=== PATIENT | male | born 2000 | race Two or more races ===

== ENCOUNTER 2022-09-13 15:28 | Emergency (ER) | payer SELFPAY ==
[~2022-09-13] VITALS: Ht 172.7 cm; Wt 87.9 kg
[2022-09-13 15:29] VITALS: BP 128/76
== END 2022-09-13 23:12 | disposition left against medical advice (07) ==
LOC: M ED 15:28
DX: Z53.21 Procedure and treatment not carried out due to patient leaving prior to being seen by health care provider (principal)

== ENCOUNTER 2023-04-20 10:49 | Inpatient (IN) | payer OTHER, SELFPAY ==
[~2023-04-20] VITALS: Ht 175.3 cm; Wt 83.4 kg
[2023-04-20 11:53] LABS: HEMOGLOBIN 15.7 g/dl (13.5-17.5); MEAN CORPUSCULAR HGB CONC 36.5 g/dl (32.0-36.5); PLATELET COUNT, AUTOMATED 225 10^3/uL (150-450); RED BLOOD COUNT 5.06 10^6/uL (4.30-6.10); WHITE BLOOD COUNT 6.5 10^3/uL (4.0-10.0)
[2023-04-20 12:10] LABS: AMPHETAMINES LEVEL URINE NEGATIVE (NEGATIVE); BARBITURATES URINE NEGATIVE (NEGATIVE); BENZODIAZEPINES URINE NEGATIVE (NEGATIVE); CANNABINOIDS URINE NEGATIVE (NEGATIVE); COCAINE METABOLITE URINE NEGATIVE (NEGATIVE); METHADONE URINE NEGATIVE (NEGATIVE); OPIATES URINE NEGATIVE (NEGATIVE); PHENCYCLIDINE URINE NEGATIVE (NEGATIVE)
[2023-04-20 12:11] LABS: ETHYL ALCOHOL (ETHANOL) 0.004 % (0.000-0.010)
[2023-04-20 12:13] LABS: ACETAMINOPHEN LEVEL < 2.0 UG/ML (10.0-20.0); ALBUMIN 4.2 G/DL (3.2-5.2); ALKALINE PHOSPHATASE 88 U/L (46-116); ALT/SGPT 33 U/L (7.0-40); AST/SGOT 23 U/L (<34); BILIRUBIN,DIRECT 0.5 MG/DL (<0.4); BILIRUBIN,TOTAL 1.4 MG/DL (0.3-1.2); BLOOD UREA NITROGEN 11 MG/DL (9-23); CALCIUM LEVEL 8.9 MG/DL (8.5-10.1); CARBON DIOXIDE LEVEL 25 MMOL/L (20-31); CHLORIDE LEVEL 105 MMOL/L (98-107); GLUCOSE, FASTING 88 MG/DL (60-100); POTASSIUM SERUM 3.8 MMOL/L (3.5-5.1); SALICYLATE LEVEL < 3.0 MG/DL (<30); SODIUM LEVEL 140 MMOL/L (136-145); TOTAL PROTEIN 7.1 G/DL (5.7-8.2)
[2023-04-20 12:15] LABS: THYROID STIMULATING HORMONE 0.592 uIU/ML (0.48-4.17)
[2023-04-20] MEDS ORDERED: NICOTINE 21MG/24HR 1 EA TRANSDERMAL TD ONE (12:35)
[2023-04-20] MEDS ORDERED: diphenhydrAMINE 25MG CAP PO PRN (15:05)
[2023-04-20] MEDS ORDERED: traZODone 50 MG TAB PO PRN (15:05)
[2023-04-20] MEDS ORDERED: ACETAMINOPHEN TAB 650MG DOSE (2X325MG) PO PRN (15:05)
[2023-04-20] MEDS ORDERED: MAALOX 30 ML SUSP *UDC PO PRN (15:05)
[2023-04-20] MEDS ORDERED: IBUPROFEN 400MG TAB PO PRN (15:05)
[2023-04-20] MEDS ORDERED: MOM 30ML SUSPENSION UDC PO PRN (15:05)
[2023-04-20] MEDS ORDERED: HOME MED LIST COMPLETE! XX SCH (15:15)
[2023-04-20 17:02] VITALS: BP 112/84
[2023-04-20] MEDS: NICOTINE POLACRILEX 2 MG GUM PO PRN ×2 (17:28→21:35)
[2023-04-21 06:46] VITALS: BP 123/80
[2023-04-21] MEDS ORDERED: NICOTINE 14 MG/24 HR TRANSDERMAL TD SCH (09:00)
[2023-04-21] MEDS: NICOTINE POLACRILEX 2 MG GUM PO PRN ×3 (10:45→23:11)
[2023-04-21] MEDS: SERTRALINE HCL 50 MG TAB PO SCH (10:48)
[2023-04-21] MEDS: traZODone 50 MG TAB PO PRN (23:12)
[2023-04-22 06:36] VITALS: BP 144/74
[2023-04-22] MEDS: SERTRALINE HCL 50 MG TAB PO SCH (08:17)
[2023-04-22] MEDS: NICOTINE POLACRILEX 2 MG GUM PO PRN ×4 (08:18→21:25)
[2023-04-22] MEDS: GABAPENTIN 300 MG CAP PO PRN (15:00)
[2023-04-22 19:31] VITALS: BP 146/68
[2023-04-22] MEDS: traZODone 50 MG TAB PO PRN (20:59)
[2023-04-23 06:19] VITALS: BP 120/58
[2023-04-23] MEDS: GABAPENTIN 300 MG CAP PO PRN ×2 (08:32→18:00)
[2023-04-23] MEDS: SERTRALINE HCL 50 MG TAB PO SCH (08:32)
[2023-04-23] MEDS: NICOTINE POLACRILEX 2 MG GUM PO PRN (08:32)
[2023-04-23] MEDS: NICOTINE 21MG/24HR 1 EA TRANSDERMAL TD PRN (11:58)
[2023-04-23] MEDS: IBUPROFEN 800 MG TAB PO SCH ×3 (12:07→23:35)
[2023-04-23 18:00] VITALS: BP 150/70
[2023-04-23] MEDS: traZODone 50 MG TAB PO PRN (22:42)
[2023-04-24] MEDS: IBUPROFEN 800 MG TAB PO SCH ×4 (05:38→23:03)
[2023-04-24 06:11] VITALS: BP 99/56
[2023-04-24] MEDS: SERTRALINE HCL 50 MG TAB PO SCH (08:59)
[2023-04-24] MEDS: GABAPENTIN 300 MG CAP PO PRN ×2 (09:00→21:46)
[2023-04-24] MEDS: NICOTINE 21MG/24HR 1 EA TRANSDERMAL TD PRN (09:01)
[2023-04-24 18:00] VITALS: BP 120/74
[2023-04-24] MEDS: traZODone 50 MG TAB PO PRN (22:54)
[2023-04-25] MEDS: IBUPROFEN 800 MG TAB PO SCH ×2 (06:01→12:02)
[2023-04-25 06:20] VITALS: BP 99/52
[2023-04-25] MEDS ORDERED: TRAZ-252 PO (09:20)
[2023-04-25] MEDS ORDERED: GABA-282 PO (09:20)
[2023-04-25] MEDS ORDERED: SERT50TA29 PO (09:20)
[2023-04-25] MEDS ORDERED: NICO21PAT TD (09:20)
[2023-04-25] MEDS: GABAPENTIN 300 MG CAP PO PRN (09:29)
[2023-04-25] MEDS: SERTRALINE HCL 50 MG TAB PO SCH (09:29)
[2023-04-25] MEDS: NICOTINE 21MG/24HR 1 EA TRANSDERMAL TD PRN (11:13)
== END 2023-04-25 12:35 | disposition home or self-care (01) | DRG 881 ==
LOC: M ED 10:49 → M ED INP 15:05 → M PSY 16:24
PROVIDERS: ADMIT Student in an Organized Health Care Education/Training Program; ATTEND Student in an Organized Health Care Education/Training Program
DX: F32.9 Major depressive disorder, single episode, unspecified (principal); R45.851 Suicidal ideations; F41.9 Anxiety disorder, unspecified; F17.290 Nicotine dependence, other tobacco product, uncomplicated; Z81.8 Family history of other mental and behavioral disorders; Z81.3 Family history of other psychoactive substance abuse and dependence; M25.571 Pain in right ankle and joints of right foot; G89.29 Other chronic pain

== ENCOUNTER 2023-06-29 15:48 | Inpatient (IN) | payer OTHER ==
[~2023-06-29] VITALS: Ht 175.3 cm; Wt 84.1 kg
[~2023-06-29 15:48] MED LIST: GABA-282 PO; NICO21PAT TD; SERT50TA29 PO; TRAZ-252 PO
[2023-06-29 16:31] LABS: BASO # 0.1 10^3/uL (0.0-0.2); BASO % 0.6 % (0.0-1.0); EOS # 0.4 10^3/uL (0.0-0.5); EOS % 4.8 % (0.0-3.0); HEMATOCRIT 40.9 % (42.0-52.0); HEMOGLOBIN 14.9 g/dl (13.5-17.5); LYMPH # 2.7 10^3/uL (1.5-5.0); LYMPH % 33.8 % (24.0-44.0); MEAN CORPUSCULAR HGB CONC 36.4 g/dl (32.0-36.5); MEAN CORPUSCULAR VOLUME 85.2 fl (80.0-96.0); MONO # 0.6 10^3/uL (0.0-0.8); NEUTROPHILS # 4.3 10^3/uL (1.5-8.5); NEUTROPHILS % 53.6 % (36.0-66.0); PLATELET COUNT, AUTOMATED 230 10^3/uL (150-450); WHITE BLOOD COUNT 8.1 10^3/uL (4.0-10.0)
[2023-06-29] MEDS ORDERED: CHARCOAL ACTIVATED LIQUID 25GM/120ML BTL PO ONE (16:35)
[2023-06-29] MEDS: NS 1,000 ML IV SCH ×2 (16:40→20:40)
[2023-06-29 16:51] LABS: ETHYL ALCOHOL (ETHANOL) < 0.003 % (0.000-0.010)
[2023-06-29 16:53] LABS: ACETAMINOPHEN LEVEL < 2.0 UG/ML (10.0-20.0); ALBUMIN 3.9 G/DL (3.2-5.2); ALKALINE PHOSPHATASE 90 U/L (46-116); ALT/SGPT 28 U/L (7.0-40); AST/SGOT 13 U/L (<34); BILIRUBIN,DIRECT 0.4 MG/DL (<0.4); BILIRUBIN,TOTAL 1.2 MG/DL (0.3-1.2); BLOOD UREA NITROGEN 14 MG/DL (9-23); CALCIUM LEVEL 9.3 MG/DL (8.5-10.1); CARBON DIOXIDE LEVEL 25 MMOL/L (20-31); CHLORIDE LEVEL 104 MMOL/L (98-107); CREATININE FOR GFR 0.82 MG/DL (0.70-1.30); GLOMERULAR FILTRATION RATE > 60.0 (>60); GLUCOSE, FASTING 95 MG/DL (60-100); POTASSIUM SERUM 4.1 MMOL/L (3.5-5.1); SALICYLATE LEVEL < 3.0 MG/DL (<30); SODIUM LEVEL 138 MMOL/L (136-145)
[2023-06-29 16:55] LABS: THYROID STIMULATING HORMONE 2.796 uIU/ML (0.55-4.78)
[2023-06-29 16:56] LABS: CPK CREATINE PHOSPHOKINASE 67 U/L (46-171)
[2023-06-29] MEDS ORDERED: MED REC IN PROGRESS XX SCH (17:55)
[2023-06-29] MEDS ORDERED: ONDANSETRON 4MG 2ML VIAL IV PRN (17:55)
[2023-06-29] MEDS ORDERED: GABA-282 PO (21:47)
[2023-06-29] MEDS ORDERED: TRAZ1TAB10 PO (21:47)
[2023-06-29] MEDS ORDERED: SERT50TA29 PO (21:47)
[2023-06-29] MEDS ORDERED: HOME MED LIST COMPLETE! XX SCH (21:50)
[2023-06-29 22:07] VITALS: BP 114/67; TEMP 98.1; O2SAT 98
[2023-06-29 22:45] LABS: AMPHETAMINES LEVEL URINE NEGATIVE (NEGATIVE)
[2023-06-29 22:46] LABS: BARBITURATES URINE NEGATIVE (NEGATIVE); BENZODIAZEPINES URINE NEGATIVE (NEGATIVE); CANNABINOIDS URINE NEGATIVE (NEGATIVE); COCAINE METABOLITE URINE NEGATIVE (NEGATIVE); METHADONE URINE NEGATIVE (NEGATIVE); OPIATES URINE NEGATIVE (NEGATIVE); PHENCYCLIDINE URINE NEGATIVE (NEGATIVE)
[2023-06-30] MEDS: NS 1,000 ML IV SCH ×5 (00:51→16:05)
[2023-06-30 03:05] VITALS: BP 108/58; TEMP 98.6; O2SAT 98
[2023-06-30 06:00] VITALS: BP 119/64; TEMP 98.6; O2SAT 96
[2023-06-30 06:44] LABS: ALBUMIN 3.5 G/DL (3.2-5.2); ALKALINE PHOSPHATASE 80 U/L (46-116); ALT/SGPT 22 U/L (7.0-40); AST/SGOT 8 U/L (<34); BILIRUBIN,TOTAL 1.2 MG/DL (0.3-1.2); BLOOD UREA NITROGEN 5 MG/DL (9-23); CALCIUM LEVEL 8.6 MG/DL (8.5-10.1); CARBON DIOXIDE LEVEL 25 MMOL/L (20-31); CHLORIDE LEVEL 110 MMOL/L (98-107); CREATININE FOR GFR 0.77 MG/DL (0.70-1.30); GLOMERULAR FILTRATION RATE > 60.0 (>60); GLUCOSE, FASTING 83 MG/DL (60-100); SODIUM LEVEL 143 MMOL/L (136-145); TOTAL PROTEIN 6.1 G/DL (5.7-8.2)
[2023-06-30] MEDS ORDERED: FAMOTIDINE 20 MG TAB PO SCH (09:00)
[2023-06-30] MEDS ORDERED: ENOXAPARIN 40MG/0.4ML SYRINGE (J1650 PER 10MG) SC SCH (09:00)
[2023-06-30 10:00] VITALS: BP 120/70; TEMP 97.7; O2SAT 98
[2023-06-30 14:00] VITALS: BP 119/60; TEMP 98.6; O2SAT 98
== END 2023-06-30 20:32 | DRG 918 ==
LOC: M ED 15:48 → EDBD 15:48 → M ED INP 17:33 → M MSPAV 22:12
PROVIDERS: ADMIT Student in an Organized Health Care Education/Training Program; ATTEND Student in an Organized Health Care Education/Training Program
DX: T43.222A Poisoning by selective serotonin reuptake inhibitors, intentional self-harm, initial encounter (principal); T43.212A Poisoning by selective serotonin and norepinephrine reuptake inhibitors, intentional self-harm, initial encounter; F17.290 Nicotine dependence, other tobacco product, uncomplicated; G43.909 Migraine, unspecified, not intractable, without status migrainosus; Z79.899 Other long term (current) drug therapy; F41.9 Anxiety disorder, unspecified; F32.A Depression, unspecified; Z81.8 Family history of other mental and behavioral disorders; F43.25 Adjustment disorder with mixed disturbance of emotions and conduct

== ENCOUNTER 2023-06-30 17:48 | Inpatient (IN) | payer OTHER ==
[~2023-06-30 17:48] MED LIST changes: +TRAZ1TAB10 PO
[2023-06-30] MEDS ORDERED: diphenhydrAMINE 25MG CAP PO PRN (18:25)
[2023-06-30] MEDS ORDERED: MOM 30ML SUSPENSION UDC PO PRN (18:25)
[2023-06-30] MEDS ORDERED: ACETAMINOPHEN TAB 650MG DOSE (2X325MG) PO PRN (18:25)
[2023-06-30] MEDS ORDERED: MAALOX 30 ML SUSP *UDC PO PRN (18:25)
[2023-06-30] MEDS: traZODone 50 MG TAB PO PRN (20:56)
[2023-06-30 21:07] VITALS: BP 130/61; TEMP 97.4; O2SAT 97
[2023-06-30] MEDS: NICOTINE 21MG/24HR 1 EA TRANSDERMAL TD PRN (21:12)
[2023-06-30] MEDS ORDERED: HOME MED LIST COMPLETE! XX SCH (21:30)
[2023-07-01 07:00] VITALS: BP 120/58; TEMP 96.8; O2SAT 98
[2023-07-01] MEDS ORDERED: SERTRALINE HCL 50 MG TAB PO SCH (09:00)
[2023-07-01] MEDS ORDERED: NICOTINE 21MG/24HR 1 EA TRANSDERMAL TD SCH (09:00)
[2023-07-01] MEDS: FLUoxetine 10 MG CAP PO SCH (10:36)
[2023-07-01] MEDS: NICOTINE 21MG/24HR 1 EA TRANSDERMAL TD PRN (10:37)
[2023-07-01 18:16] VITALS: BP 134/82; TEMP 96.6; O2SAT 100
[2023-07-01] MEDS: IBUPROFEN 400MG TAB PO PRN (19:16)
[2023-07-01] MEDS: traZODone 50 MG TAB PO PRN (20:46)
[2023-07-02 06:31] VITALS: BP 111/64; TEMP 96.8; O2SAT 98
[2023-07-02] MEDS: FLUoxetine 10 MG CAP PO SCH (08:54)
[2023-07-02] MEDS: NICOTINE 21MG/24HR 1 EA TRANSDERMAL TD PRN (08:55)
[2023-07-02 18:27] VITALS: BP 121/66; TEMP 96; O2SAT 100
[2023-07-02] MEDS: IBUPROFEN 400MG TAB PO PRN (21:27)
[2023-07-02] MEDS: traZODone 50 MG TAB PO PRN (21:27)
[2023-07-03 06:26] VITALS: BP 103/58; TEMP 98.2; O2SAT 98
[2023-07-03] MEDS: NICOTINE 21MG/24HR 1 EA TRANSDERMAL TD PRN (08:59)
[2023-07-03] MEDS: FLUoxetine 10 MG CAP PO SCH (08:59)
[2023-07-03] MEDS ORDERED: traZODone 50 MG TAB PO PRN (12:05)
[2023-07-03 18:10] VITALS: BP 126/73; TEMP 96.6; O2SAT 100
[2023-07-04 06:51] VITALS: BP 106/56; TEMP 97.8; O2SAT 96
[2023-07-04] MEDS: FLUoxetine 10 MG CAP PO SCH (08:13)
[2023-07-04] MEDS: NICOTINE 21MG/24HR 1 EA TRANSDERMAL TD PRN (08:14)
[2023-07-04] MEDS ORDERED: NICO21PAT TD (09:51)
[2023-07-04] MEDS ORDERED: FLUO-96 PO (09:51)
[2023-07-04] MEDS ORDERED: TRAZ-252 PO (09:51)
[2023-07-04] MEDS ORDERED: CETI5TA PO (10:51)
[2023-07-04] MEDS ORDERED: FLON1SPR NARES (10:51)
== END 2023-07-04 12:42 | disposition home or self-care (01) | DRG 882 ==
LOC: M PSY 20:35
PROVIDERS: ADMIT Psychiatry & Neurology Psychiatry; ATTEND Student in an Organized Health Care Education/Training Program
DX: F43.25 Adjustment disorder with mixed disturbance of emotions and conduct (principal); Z79.899 Other long term (current) drug therapy; Z91.51 Personal history of suicidal behavior